=== PATIENT | female | born 1980 | race Caucasian/White ===

== ENCOUNTER 2017-03-09 20:23 | Emergency (ER) | payer OTHER ==
[2017-03-09 21:02] VITALS: BP 115/69
[2017-03-09] MEDS ORDERED: Amoxicillin/Clavulanate TAB* 875 MG PO ONE (21:28)
--- NOTE | 2017-03-09 21:54 | ED ---
Throat Pain/Nasal Congestion - HPI Summary HPI Summary: 36 yr old female with the complaint of left ear pain. onset three days ago. Located left ear. Pain is 7/10 and radiates down the left side of her neck. Denies runny nose, cough fever chills. She has had prior OM. She is a smoker. - History of Current Complaint Chief Complaint: UCEar Time Seen by Provider: 03/09/17 21:21 - Allergies/Home Medications Allergies/Adverse Reactions: Allergies Allergy/AdvReac Type Severity Reaction Status Date / Time No Known Allergies Allergy Verified 03/09/17 20:56 Home Medications: Home Medications FLUoxetine CAP* [PROzac CAP*] 20 mg PO DAILY 03/09/17 [History Confirmed ] PMH/Surg Hx/FS Hx/Imm Hx Previously Healthy: Yes - Surgical History Surgery Procedure, Year, and Place: Tubal Ligation Infectious Disease History: No Infectious Disease History: Denies: Traveled Outside the [place] in Last 30 Days - Family History Known Family History: Positive: None - Social History Alcohol Use: None Substance Use Type: Reports: None Hx Tobacco Use: Yes Smoking Status (MU): Heavy Every Day Tobacco Smoker Type: Cigarettes Amount Used/How Often: 1/2 PPD Length of Time of Smoking/Using Tobacco: 18 Years Have You Smoked in the Last Year: Yes Review of Systems Constitutional: Negative Positive: Ear Ache All Other Systems Reviewed And Are Negative: Yes Physical Exam Triage Information Reviewed: Yes Vital Signs On Initial Exam: Initial Vitals Temp Pulse Resp BP Pulse Ox 97.4 F 70 18 115/69 99 03/09/17 20:53 03/09/17 20:53 03/09/17 20:53 03/09/17 20:53 03/09/17 20:53 Vital Signs Reviewed: Yes Appearance: Positive: Well-Appearing, No Pain Distress Skin: Positive: Skin Color Reflects Adequate Perfusion Head/Face: Positive: Normal Head/Face Inspection Eyes: Positive: EOMI ENT: Positive: TM bulging - left, TM red - left Neck: Positive: Supple, Nontender, Other: - no masses, and no tenderness to the left side of her neck. Negative: Tenderness @ Respiratory/Lung Sounds: Positive: Clear to Auscultation, Breath Sounds Present Cardiovascular: Positive: RRR. Negative: Murmur Abdomen Description: Positive: Nontender Musculoskeletal: Positive: Strength/ROM Intact Neurological: Positive: Sensory/Motor Intact, Alert, Oriented to Person Place, Time, CN Intact II-III Psychiatric: Positive: Normal - Symone Coma Scale Best Eye Response: 4 - Spontaneous Best Motor Response: 6 - Obeys Commands Best Verbal Response: 5 - Oriented Diagnostics - Vital Signs Vital Signs Temp Pulse Resp BP Pulse Ox 03/09/17 20:53 97.4 F 70 18 115/69 99 - Laboratory Lab Statement: Any lab studies that have been ordered have been reviewed, and results considered in the medical decision making process. EENT Course/Dx - Course Course Of Treatment: 36 yr old female with left OM, and referred pain from that ear into her left upper neck. Rx with augmentin FU with PMd - Diagnoses Provider Diagnoses: Otitis media Discharge - Discharge Plan Condition: Good Disposition: HOME Prescriptions: Amoxicillin/Clavulanate TAB* [Augmentin TAB 875*] 875 mg PO BID #20 tab Patient Education Materials: Otitis Media (ED) Referrals: [facility] [Primary Care Provider] -
== END 2017-03-09 21:36 | disposition home or self-care (01) ==
LOC: UCCORT 20:23
DX: H66.92 Otitis media, unspecified, left ear (principal); F17.210 Nicotine dependence, cigarettes, uncomplicated
CPT/HCPCS: 99212; A9270-GY; G0463

== ENCOUNTER 2018-10-01 10:36 | Emergency (ER) | payer OTHER ==
[2018-10-01 11:33] VITALS: BP 110/66
--- NOTE | 2018-10-01 11:51 | UC ---
Back Pain HPI - HPI Summary HPI Summary: Patient has no known injury to her back but she states she's had low back pain for one month now. She states in the morning is usually fine and then at the end of the day she has strained her back. She denies any numbness or tingling in her extremities and no saddle anesthesia. No difficulty urinating or defecating. She does not work outside the home. - History of Current Complaint Chief Complaint: UCBackPain Stated Complaint: LOW BACK PAIN Time Seen by Provider: 10/01/18 11:45 Hx Obtained From: Patient Hx Last Menstrual Period: tubal ?: No Onset/Duration: Gradual Onset Timing: Intermittent Severity Initially: Mild Severity Currently: Mild - Upon entrance into the room the patient is walking around and moving without difficulty. Pain Intensity: 8 Character: Dull, Aching Aggravating Factor(s): Movement, Lifting, Bending, Other - Back pain is worse at the end of the day then in the morning when she usually does not experience it. Alleviating Factor(s): Rest Associated Signs And Symptoms: Negative: Weakness, Numbness, Tingling, Abdominal Pain, Flank Pain, Bladder Incontinence, Bowel Incontinence, Pain with Weight Bearing - Patient is moving around the room without difficulty. - Allergies/Home Medications Allergies/Adverse Reactions: Allergies Allergy/AdvReac Type Severity Reaction Status Date / Time No Known Allergies Allergy Verified 10/01/18 11:33 PMH/Surg Hx/FS Hx/Imm Hx Previously Healthy: Yes - Surgical History Surgical History: Yes Surgery Procedure, Year, and Place: Tubal Ligation - Family History Known Family History: Positive: None - Social History Occupation: Unemployed Alcohol Use: Occasionally Substance Use Type: None Smoking Status (MU): Heavy Every Day Tobacco Smoker Type: Cigarettes Amount Used/How Often: 1/2 PPD Length of Time of Smoking/Using Tobacco: 18 Years Have You Smoked in the Last Year: Yes - Immunization History Most Recent Influenza Vaccination: NOT THIS SEASON Review of Systems All Other Systems Reviewed And Are Negative: Yes Motor: Positive: Negative Neurovascular: Positive: Negative Musculoskeletal: Positive: Negative Neurological: Positive: Negative Is Patient Immunocompromised?: No Physical Exam Triage Information Reviewed: Yes Appearance: Well-Appearing, No Pain Distress, Well-Nourished - Patient is moving around the room walking and sitting to standing without difficulty Vital Signs: Initial Vital Signs Temp 97.9 F 10/01/18 11:29 Pulse 64 10/01/18 11:29 Resp 18 10/01/18 11:29 BP 110/66 10/01/18 11:29 Pulse Ox 98 10/01/18 11:29 Vital Signs Reviewed: Yes Eye Exam: Normal Respiratory: Positive: Lungs clear, Normal breath sounds, No respiratory distress, No accessory muscle use Cardiovascular: Positive: RRR, No Murmur, Pulses Normal, Brisk Capillary Refill Abdomen Description: Positive: Nontender, No Organomegaly, Soft Bowel Sounds: Positive: Present Musculoskeletal: Positive: Strength Intact, ROM Intact - Negative straight leg raise Neurological: Positive: Alert, Muscle Tone Normal - Reflexes +2 at the knee, good leg strength against resistance Psychological Exam: Normal Skin Exam: Normal Back Pain Course/Dx - Course Course Of Treatment: Patient has no known injury to her low back strain, in the morning she's fine and then as the day progresses she has a sore back. I'm treating her with Motrin and Flexeril and follow-up with her primary care provider if no improvement in for 5 days. She is to avoid lifting, pushing, pulling, twisting and go to the emergency room for any worsening symptoms. - Differential Dx/Diagnosis Provider Diagnosis: Low back strain Discharge - Sign-Out/Discharge Documenting (check all that apply): Patient Departure All imaging exams completed and their final reports reviewed: No Studies - Discharge Plan Condition: Fair Disposition: HOME Prescriptions: Cyclobenzaprine TAB* [Flexeril 10 MG TAB*] 10 mg PO TID PRN #15 tab PRN Reason: Pain Ibuprofen TAB* [Motrin TAB* 600 MG] 600 mg PO Q8H PRN #21 tab PRN Reason: Pain Patient Education Materials: Lower Back Exercises (ED), Low Back Strain (ED) Referrals: Latisha Sullivan [Primary Care Provider] - Additional Instructions: Apply heat to the sore area, avoid movements that cause pain, take the Motrin with food, do not drink alcohol or drive while you are taking the muscle relaxant. Follow-up with your primary care provider in 4 or 5 days if no improvement. Go to the emergency room if you have any worsening symptoms. - Billing Disposition and Condition Condition: FAIR Disposition: Home
== END 2018-10-01 12:02 | disposition home or self-care (01) ==
LOC: UCCORT 10:36
DX: S39.012A Strain of muscle, fascia and tendon of lower back, initial encounter (principal); F17.210 Nicotine dependence, cigarettes, uncomplicated; X58.XXXA Exposure to other specified factors, initial encounter; Y92.9 Unspecified place or not applicable
CPT/HCPCS: 99212; G0463